=== PATIENT | female | born 1965 | race Caucasian/White ===

== ENCOUNTER 2018-12-08 13:37 | Emergency (ER) | payer OTHER, SELFPAY ==
[~2018-12-08] VITALS: Ht 162.6 cm; Wt 61.2 kg
[~2018-12-08 13:37] MED LIST: ALBU90OI61 INH; Antivert12.5 MG PO; KETO5OP OU; Zofran Odt4 MG SL
[2018-12-08 14:06] LABS: BASOPHILS ABSOLUTE AUTO 0.07 K/mm3 (0.00-0.23); BASOPHILS PERCENT AUTO 1 % (0-2); EOSINOPHILS ABSOLUTE AUTO 0.11 K/mm3 (0.00-0.68); EOSINOPHILS PERCENT AUTO 1 % (0-6); Hematocrit 41.3 % (33.0-51.0); Hemoglobin 13.7 g/dL (11.5-16.0); IMMATURE GRAN ABSOLUTE AUTO 0.02 K/mm3 (0.00-0.10); IMMATURE GRAN PERCENT AUTO 0 % (0-1); LYMPHOCYTES ABSOLUTE AUTO 4.16 K/mm3 (0.84-5.20); LYMPHOCYTES PERCENT AUTO 46 % (21-46); MONOCYTES ABSOLUTE AUTO 0.56 K/mm3 (0.16-1.47); MONOCYTES PERCENT AUTO 6 % (4-13); Mean Corpuscular HGB 31.1 pg (26.0-34.0); Mean Corpuscular HGB Conc 33.2 g/dL (31.5-36.5); Mean Corpuscular Volume 94 fL (80-100); Mean Platelet Volume 10.2 fL (9.1-12.4); NEUTROPHILS ABSOLUTE AUTO 4.13 K/mm3 (1.96-9.15); NEUTROPHILS PERCENT AUTO 46 % (41-73); Platelet Count 204 K/mm3 (150-400); RDW Coefficient Variation 12.6 % (11.7-14.2); RDW Standard Deviation 43.2 fL (35.1-46.3); Red Blood Cell Count 4.41 M/mm3 (3.80-5.20); White Blood Cell Count 9.05 K/mm3 (4.00-11.30)
[2018-12-08 14:25] LABS: Alanine Aminotransfer (ALT/SGP 17 U/L (12-78); Albumin, Blood 3.6 g/dL (3.4-5.0); Alk Phos 116 U/L (50-136); Anion Gap 7 mmol/L (6-16); Aspartate Aminotrans (AST/SGOT 12 U/L (12-37); Bilirubin, Total 0.2 mg/dL (0.1-1.0); Blood Urea Nitrogen 11 mg/dL (8-24); Bun/Creatinine Ratio 14.6 (12.0-20.0); CO2, Blood 26 mmol/L (21-32); Calcium, Blood 8.7 mg/dL (8.5-10.1); Chloride, Blood 108 mmol/L (98-108); Creatinine, Blood 0.75 mg/dL (0.40-1.00); Globulin, Blood 3.7 g/dL (2.2-4.0); Glomerular Filtration Rate >60 (60-); Glucose, Blood 116 mg/dL (70-99); Potassium, Blood 3.8 mmol/L (3.5-5.5); Sodium, Blood 141 mmol/L (136-145); Total Protein, Blood 7.3 g/dL (6.4-8.2); Troponin I <0.015 ng/mL (0.000-0.040)
[2018-12-08] MEDS ORDERED: OMEPRAZOLE MAGN20 MG PO (17:23)
[2018-12-08] MEDS ORDERED: NITR.4SL SL (17:25)
== END 2018-12-08 17:33 | disposition home or self-care (01) ==
LOC: ER 13:37
PROVIDERS: Physician Assistant
DX: R07.9 Chest pain, unspecified (principal); F43.9 Reaction to severe stress, unspecified; Z72.0 Tobacco use; Z88.1 Allergy status to other antibiotic agents; Z86.73 Personal history of transient ischemic attack (TIA), and cerebral infarction without residual deficits; F17.200 Nicotine dependence, unspecified, uncomplicated
CPT/HCPCS: 36415; 71046; 80053; 83880; 84484; 85025; 93005; 93010; 94640; 96374; 99284-25

== ENCOUNTER 2022-07-18 20:32 | Emergency (ER) | payer BC, OTHER ==
[~2022-07-18] VITALS: Ht 162.6 cm; Wt 63.5 kg
[~2022-07-18 20:32] MED LIST changes: +NITR.4SL SL; +OMEPRAZOLE MAGN20 MG PO
[2022-07-19] MEDS ORDERED: Roxicodone5 MG PO (00:31)
== END 2022-07-19 00:40 | disposition home or self-care (01) ==
LOC: ER 20:32
DX: K08.89 Other specified disorders of teeth and supporting structures (principal); F17.200 Nicotine dependence, unspecified, uncomplicated; Z86.73 Personal history of transient ischemic attack (TIA), and cerebral infarction without residual deficits
CPT/HCPCS: 64400; 99282-25; A9270

== ENCOUNTER 2023-02-10 16:57 | Emergency (ER) | payer BC, OTHER ==
[~2023-02-10] VITALS: Ht 162.6 cm; Wt 64.0 kg
[~2023-02-10 16:57] MED LIST changes: +Roxicodone5 MG PO
[2023-02-10 17:53] LABS: Hematocrit 42.1 % (33.0-51.0); Mean Corpuscular HGB 29.9 pg (26.0-34.0); Mean Corpuscular HGB Conc 33.3 g/dL (31.5-36.5); Mean Corpuscular Volume 90 fL (80-100); Mean Platelet Volume 10.2 fL (9.1-12.4); Platelet Count 221 K/mm3 (150-400); RDW Coefficient Variation 13.1 % (11.7-14.2); RDW Standard Deviation 42.8 fL (35.1-46.3); Red Blood Cell Count 4.68 M/mm3 (3.80-5.20); White Blood Cell Count 11.87 K/mm3 (4.00-11.30)
[2023-02-10 18:17] LABS: BASOPHILS PERCENT MAN 0 % (0-2); EOSINOPHILS PERCENT MAN 0 % (0-6); LYMPHOCYTES ABSOLUTE MAN 6.17 K/mm3 (0.84-5.20); LYMPHOCYTES PERCENT MAN 52 % (21-46); MONOCYTES ABSOLUTE MAN 0.47 K/mm3 (0.16-1.47); MONOCYTES PERCENT MAN 4 % (4-13); NEUTROPHILS ABSOLUTE MAN 5.22 K/mm3 (1.96-9.15); SEG NEUTROPHILS PERCENT MAN 44 % (41-73); TOTAL CELLS COUNTED 100
[2023-02-10 18:20] LABS: Albumin, Blood 3.4 g/dL (3.4-5.0); Albumin/Globulin Ratio 0.8 (0.8-1.8); Bilirubin, Total 0.3 mg/dL (0.1-1.0); Bun/Creatinine Ratio 13.1 (12.0-20.0); Calcium, Blood 8.9 mg/dL (8.5-10.1); Creatinine, Blood 0.76 mg/dL (0.40-1.00); Globulin, Blood 4.1 g/dL (2.2-4.0); Magnesium, Blood 2.1 mg/dL (1.6-2.4); Potassium, Blood 3.6 mmol/L (3.5-5.5); Total Protein, Blood 7.5 g/dL (6.4-8.2)
[2023-02-10 18:21] LABS: Source, Urine Clean Catch
[2023-02-10 18:24] LABS: Appearance, Urine Clear (Clear); Bilirubin, Urine Neg (Neg); Blood, Urine 4+ (Neg); Color, Urine Yellow (P-Yellow); Glucose Qualitative, Urine Neg (Neg); Ketones, Urine 1+ (Neg); Leukocyte Esterase, Urine Neg (Neg); Nitrite, Urine Neg (Neg); Protein, Urine 1+ (Neg); Urobilinogen, Urine NORM (Normal)
[2023-02-10 18:31] LABS: White Blood Cells, Urine 0-2 /hpf (0-5)
[2023-02-10 18:32] LABS: Bacteria Few /hpf; Mucus Light (0-Heavy); Squamous Epithelial Cells Few /hpf (Few)
[2023-02-10] MEDS ORDERED: CIPR500 PO (19:35)
[2023-02-10] MEDS ORDERED: METR500 PO (19:35)
[2023-02-10] MEDS ORDERED: PROBIOTIC1 EA13 PO (19:35)
[2023-02-10 20:32] VITALS: BP 114/91
== END 2023-02-10 20:33 | disposition home or self-care (01) ==
LOC: ER 16:57
PROVIDERS: Physician Assistant
DX: K57.32 Diverticulitis of large intestine without perforation or abscess without bleeding (principal); K52.9 Noninfective gastroenteritis and colitis, unspecified; F17.200 Nicotine dependence, unspecified, uncomplicated
CPT/HCPCS: 74177; 80053; 81001; 83735; 85025; 99284-25; A9270; Q9967

== ENCOUNTER 2024-04-08 08:38 | Inpatient (IN) | payer OTHER ==
[~2024-04-08] VITALS: Ht 162.6 cm; Wt 62.9 kg
[~2024-04-08 08:38] MED LIST changes: +CIPR500 PO; +METR500 PO; +PROBIOTIC1 EA13 PO
[2024-04-08] MEDS ORDERED: Ketorolac Tromethamine 30mg Vial IM ONE (09:40)
[2024-04-08 10:35] LABS: CORONAVIRUS COVID-19 AG Negative (NEGATIVE); INFLUENZA A AG Negative (NEGATIVE); INFLUENZA B AG Negative (NEGATIVE)
[2024-04-08] MEDS ORDERED: NS 1,000 ML IV SCH ×2 (11:05→14:25)
[2024-04-08] MEDS ORDERED: Acetaminophen 500 MG Tab PO ONE (11:05)
[2024-04-08 11:26] LABS: BASOPHILS ABSOLUTE AUTO 0.02 K/mm3 (0.00-0.23); BASOPHILS PERCENT AUTO 0 % (0-2); EOSINOPHILS PERCENT AUTO 0 % (0-6); Hematocrit 39.2 % (33.0-51.0); Hemoglobin 13.7 g/dL (11.5-16.0); IMMATURE GRAN ABSOLUTE AUTO 0.02 K/mm3 (0.00-0.10); IMMATURE GRAN PERCENT AUTO 0 % (0-1); LYMPHOCYTES ABSOLUTE AUTO 0.81 K/mm3 (0.84-5.20); LYMPHOCYTES PERCENT AUTO 11 % (21-46); MONOCYTES ABSOLUTE AUTO 0.44 K/mm3 (0.16-1.47); MONOCYTES PERCENT AUTO 6 % (4-13); Mean Corpuscular HGB 30.7 pg (26.0-34.0); Mean Corpuscular HGB Conc 34.9 g/dL (31.5-36.5); Mean Corpuscular Volume 88 fL (80-100); Mean Platelet Volume 9.4 fL (9.1-12.4); NEUTROPHILS ABSOLUTE AUTO 5.87 K/mm3 (1.96-9.15); NEUTROPHILS PERCENT AUTO 82 % (41-73); Platelet Count 133 K/mm3 (150-400); RDW Coefficient Variation 13.2 % (11.7-14.2); RDW Standard Deviation 42.9 fL (35.1-46.3); Red Blood Cell Count 4.46 M/mm3 (3.80-5.20); White Blood Cell Count 7.16 K/mm3 (4.00-11.30)
[2024-04-08 11:36] LABS: Source, Urine Clean Catch
[2024-04-08 11:44] LABS: Appearance, Urine Clear (Clear); Bilirubin, Urine Neg (Neg); Blood, Urine 5+ (Neg); Color, Urine Yellow (P-Yellow); Glucose Qualitative, Urine Neg (Neg); Ketones, Urine 4+ (Neg); Leukocyte Esterase, Urine Neg (Neg); Nitrite, Urine Neg (Neg); Protein, Urine 2+ (Neg); Urobilinogen, Urine NORM (Normal)
[2024-04-08 11:50] LABS: Amorphous Light (0-Heavy); Bacteria Few /hpf; Hyaline Casts 0-2 /lpf (0-2); Mucus Light (0-Heavy); Squamous Epithelial Cells Few /hpf (Few); White Blood Cells, Urine 0-2 /hpf (0-5)
[2024-04-08 12:05] LABS: Albumin, Blood 3.1 g/dL (3.4-5.0); Albumin/Globulin Ratio 0.7 (0.8-1.8); Bilirubin, Total 0.5 mg/dL (0.1-1.0); Bun/Creatinine Ratio 13.2 (12.0-20.0); Calcium, Blood 8.9 mg/dL (8.5-10.1); Creatinine, Blood 0.83 mg/dL (0.40-1.00); Globulin, Blood 4.2 g/dL (2.2-4.0); Total Protein, Blood 7.3 g/dL (6.4-8.2)
[2024-04-08] MEDS ORDERED: Potassium Chloride 20 MEQ TabCR PO ONE (12:30)
[2024-04-08] MEDS ORDERED: CefTRIAXone Sodium 1,000 MG in NS 100 ML IV ONE (13:15)
[2024-04-08] MEDS ORDERED: Azithromycin 500 MG in NS 250 ML IV ONE (13:15)
[2024-04-08] MEDS ORDERED: FLU VACC TS2024-25(6MOS UP)/PF 45 MCG/0.5 ML SYRINGE IM SCH (14:25)
[2024-04-08] MEDS ORDERED: Albuterol 2.5 MG/3 ML VIAL INH PRN (14:25)
[2024-04-08] MEDS ORDERED: Benzonatate 100 MG Cap PO PRN (14:25)
[2024-04-08] MEDS ORDERED: Guaifenesin/Dextromethorphan Syrup 5 ML UDC PO PRN (14:30)
[2024-04-08] MEDS ORDERED: Nitroglycerin 0.4 MG SUBL SL PRN (14:45)
[2024-04-08] MEDS ORDERED: PredniSONE 20 MG Tab PO SCH (15:00)
[2024-04-08 16:16] VITALS: BP 110/78
[2024-04-08] MEDS ORDERED: ESCITALOPRAM OXA5 MG PO (16:18)
[2024-04-08] MEDS ORDERED: TRAZ50 PO (16:18)
[2024-04-08 17:15] LABS: Adenovirus Not Detected (NOT DETECT); Bordetella pertussis Not Detected (NOT DETECT); Chlamydophila pneumoniae Not Detected (NOT DETECT); Coronavirus 229E Not Detected (NOT DETECT); Coronavirus HKU1 Not Detected (NOT DETECT); Coronavirus NL63 Not Detected (NOT DETECT); Coronavirus OC43 Not Detected (NOT DETECT); Human Metapneumovirus Not Detected (NOT DETECT); Human Rhinovirus/Enterovirus Not Detected (NOT DETECT); Influenza A/2009-H1 Not Detected (NOT DETECT); Influenza A/H1 Not Detected (NOT DETECT); Influenza A/H3 Not Detected (NOT DETECT); Influenza B Not Detected (NOT DETECT); Mycoplasma pneumoniae Not Detected (NOT DETECT); Parainfluenza Virus 1 Not Detected (NOT DETECT); Parainfluenza Virus 2 Not Detected (NOT DETECT); Parainfluenza Virus 3 Not Detected (NOT DETECT); Parainfluenza Virus 4 Not Detected (NOT DETECT); Respiratory Syncytial Virus Not Detected (NOT DETECT); SARS-Cov-2 (COVID-19), BioFire Not Detected (NOT DETECT)
--- NOTE | 2024-04-08 17:38 | NUR ---
ADMISSION NOTE: PATIENT ARRIVES TO ROOM VIA GURNEY AT 1608 FROM ER FOR DX'S OF SEPSIS. PATIENT AMBULATED TO BATHROOM AND BACK TO BED c SBA. PATIENT REPORTS FEELING VERY WEAK, CHEST CONGESTION AND IT HURTS HER CHEST EVERYTIMES SHE COUGHS. PATIENT HAS DRY, NONPRODUCTIVE COUGH, MEDICATED c TESSALON JOSE AND ROBITUSSIN FOR COUGH. PATIENT LUNGS HAS CRACKLES T/O TO AUSCULTATION, ON 1L O2 VIA NC SATTING 90-95%. PATIENT ON TELE, NSR HR IN THE LOW 90'S BPM. PATIENT ORIENTATED TO ROOM AND CALL SYSTEM, ADMISSION, MEDRIC AND SKIN ASSESSMENT c 2 RN'S VERIFIED COMPLETED. PATIENT HAS PIV TO RAC INFUSING NS AT 125 MLS/HR. CALL LIGHT IN REACH.
[2024-04-08 19:45] VITALS: BP 106/61
[2024-04-08] MEDS ORDERED: Famotidine 20 MG Tab PO SCH (21:00)
[2024-04-08] MEDS ORDERED: Omeprazole 20 MG CapCR PO SCH (21:00)
--- NOTE | 2024-04-09 01:58 | NUR ---
PT WITH 3 EPISODES OF LIQUID BROWN/GREEN STOOL THIS SHIFT. PT STATES SHE HAS HAD DIARRHEA AT HOME FOR THE LAST WEEK. DR. ARREOLA NOTIFIED, AND PT WAS NOT ON ANTIBIOTICS AT HOME, STATED TO CONTINUE TO MONITOR.
[2024-04-09 03:21] VITALS: BP 100/62
[2024-04-09] MEDS ORDERED: Acetaminophen 325 MG TABLET PO PRN (03:50)
--- NOTE | 2024-04-09 03:52 | NUR ---
PT C/O ABDOMINAL PAIN, REQUESTING TYLENOL. DR. ARREOLA CALLED AND TYLENOL ORDERED. THIS RN ALSO REQUESTED ZOFRAN PRN NAUSEA. ORDERS RECEIVED.
[2024-04-09] MEDS ORDERED: Ondansetron HCl 2 MG / ML 2ML Vial IV PRN (03:55)
--- NOTE | 2024-04-09 05:58 | NUR ---
SHIFT SUMMARY PT SLEPT SHORT PERIODS DURING THE NIGHT. WOKE UP X3 DRIPPING WITH SWEAT- GOWN AND LINEN CHANGES PROVIDED. PT WITH LIQUID BROWN/GREEN STOOL X5 THIS SHIFT. EQUIPMENT TESTER PROVIDER CALLED AFTER 3RD LIQUID STOOL- NO NEW ORDERS. PT C/O ABDOMINAL PAIN- TYLENOL GIVEN WITH SOME RELIEF. PT ALSO MEDICATED FOR COUGH WITH ROBITUSSIN- SEE EMAR. PT VERBALIZING FRUSTRATION THAT SHE CONTINUES TO BE "SO SICK". PT C/O INCREASING WEAKNESS WHEN AMBULATING TO BATHROOM, STATING "MY LEGS FEEL LIKE NOODLES". BEDSIDE COMMODE PROVIDED. BED IN LOWEST POSITION, CALL LIGHT WITHIN REACH, SIDE RAILS UP X2.
[2024-04-09 06:11] LABS: Bun/Creatinine Ratio 12.7 (12.0-20.0); Calcium, Blood 8.2 mg/dL (8.5-10.1); Creatinine, Blood 0.63 mg/dL (0.40-1.00); Potassium, Blood 3.9 mmol/L (3.5-5.5)
[2024-04-09 07:21] VITALS: BP 99/64
[2024-04-09] MEDS ORDERED: Enoxaparin 40 MG/0.4 ML SYR SC SCH (09:00)
[2024-04-09] MEDS ORDERED: Lactobacil 2-S.Thermo-Bifido 1 1 Cap PO SCH (09:00)
[2024-04-09] MEDS ORDERED: Azithromycin 250 MG Tab PO SCH (09:00)
[2024-04-09] MEDS ORDERED: Citalopram Hydrobromide 20 MG Tab PO SCH (11:42)
[2024-04-09] MEDS ORDERED: CefTRIAXone Sodium 1,000 MG in NS 100 ML IV SCH (12:00)
[2024-04-09 14:35] LABS: Adenovirus F 40/41 Detected (NOT DETECT); Astrovirus Not Detected (NOT DETECT); Campylobacter Sp Not Detected (NOT DETECT); Cryptosporidium Not Detected (NOT DETECT); Cyclospora Cayetanensis Not Detected (NOT DETECT); E. Coli O157 Not Detected (NOT DETECT); Entamoeba Histolytica Not Detected (NOT DETECT); Enteroaggregative E. coli-EAEC Not Detected (NOT DETECT); Enteropathogenic E. coli-EPEC Not Detected (NOT DETECT); Enterotoxigenic E. coli-ETEC Not Detected (NOT DETECT); Giardia Lamblia Not Detected (NOT DETECT); Norovirus GI/GII Not Detected (NOT DETECT); Plesiomonas Shigelloides Not Detected (NOT DETECT); Rotavirus A Not Detected (NOT DETECT); Salmonella Sp Not Detected (NOT DETECT); Sapovirus Not Detected (NOT DETECT); Shiga Toxin-prod E. coli-STEC Not Detected (NOT DETECT); Shigella/Enteroin E. coli-EIEC Not Detected (NOT DETECT); Vibrio Cholerae Not Detected (NOT DETECT); Vibrio Sp Not Detected (NOT DETECT); Yersinia Enterocolitica Not Detected (NOT DETECT)
[2024-04-09 15:27] VITALS: BP 125/64
--- NOTE | 2024-04-09 16:49 | NUR ---
SHIFT SUMMARY: PATIENT A/OX4, ANXIOUS AT TIMES D/T HER MEDICAL CONDITION, REPORTS FEELS VERY WEAK, CHEST CONGESTED c DRY NON PRODUCTIVE COUGH AND NOT ABLE TO TAKE A REALY DEEP BREATH. PATIENT ON 1L O2, SATTING 94-95%, HAS FINE CRACKLES TO THE BASES TO AUSCULTATION. PATIENT RECEIVED PRN BX TX ADMINISTERED BY RT. PATIENT HAD 4 LIQUID BM THIS SHIFT, STOOL SPECIMEN COLLECTED FOR GI PANEL AND CAME BACK DETECTED FOR ADENOVIRUS, NOTIFIED DR. CHELLY oliva THIS RESULT. PATIENT RECEIVED SCHEDULED IV ABX/MEDS PER EMAR. VITAL SIGNS REVIEWED. CALL LIGHT IN REACH.
[2024-04-09 20:30] VITALS: BP 106/64
[2024-04-09] MEDS ORDERED: TraZODone HCl 50 MG Tab PO SCH (21:00)
[2024-04-10 02:25] VITALS: BP 113/65
--- NOTE | 2024-04-10 05:19 | NUR ---
SHIFT SUMMARY PT SLEPT INTERMITTENTLY THROUGH THE NIGHT. PT WITHOUT ANY EPISODES OF NIGHT SWEATS. LIQUID STOOL CONTINUES, BUT IS SLOWING DOWN. PT REMAINS SOB WITH ACTIVITY AND IS ONLY OOB TO BSC. 1L NC WITH SATS IN THE MID 'S. MEDICATED WITH PRN TYLENOL, ROBITUSSIN, AND TESSALON JOSE- SEE EMAR. BED IN LOWEST POSITION, CALL LIGHT WITHIN REACH, SIDE RAILS UP X2.
[2024-04-10 05:32] LABS: Bun/Creatinine Ratio 13.9 (12.0-20.0); Calcium, Blood 8.8 mg/dL (8.5-10.1); Creatinine, Blood 0.65 mg/dL (0.40-1.00); Potassium, Blood 3.3 mmol/L (3.5-5.5)
[2024-04-10 07:25] VITALS: BP 119/66
[2024-04-10] MEDS ORDERED: Loperamide HCl 2 MG Cap PO PRN (07:45)
[2024-04-10] MEDS ORDERED: Potassium Chloride 20 MEQ TabCR PO ONE (07:45)
[2024-04-10] MEDS ORDERED: Banana Flakes/Tos 1 EA Powder Pack PO SCH (09:00)
[2024-04-10 15:46] VITALS: BP 129/74
--- NOTE | 2024-04-10 17:50 | NUR ---
SHIFT SUMMARY PT CONT LEVEL OF CARE WITH NO ACUTE CHANGES NOTED. PT IS A&OX4 AND INDEPENDENT IN ROOM. PT NOTED TO BE SOB WITH MILD EXERTION AND TAKES A LITTLE WHILE TO RECOVER. PT HAS RECIEVED PRN INHALER THIS SHIFT. PT STATES SHE STILL FEEL WEAK BUT ITS IMPROVED FROM THE PAST COUPLE DAYS. POSSIBLE DC IN NEXT COUPLE DAYS.
[2024-04-10 19:57] VITALS: BP 116/72
[2024-04-11 02:47] VITALS: BP 116/71
--- NOTE | 2024-04-11 05:43 | NUR ---
DERIVATIVES TRADER SUMMARY: PT A&O X4, MAKES NEEDS KNOWN. INDEPENDENT IN ROOM. PT MEDICATED X2 WITH ROBITUSSIN PER EMAR FOR COUGH; EFFECTIVE. PT REC'D PRN NEBULIZER TX WITH RT; EFFECTIVE AND PT REPORTS EXPECTORATING LARGE AMOUT OF MUCUS. PT REPORTS DECREASED AMOUNT OF LOOSE BM THIS SHIFT. TELE IN PLACE, SR AT 66 BPM. NO ACUTE CHANGES THIS SHIFT. BED IN LOWEST POSITION. CALL LIGHT IN REACH. CARES CONTINUE ORDERED.
[2024-04-11 05:45] LABS: Bun/Creatinine Ratio 13.9 (12.0-20.0); Creatinine, Blood 0.65 mg/dL (0.40-1.00); Potassium, Blood 3.2 mmol/L (3.5-5.5)
[2024-04-11 07:22] VITALS: BP 113/70
[2024-04-11] MEDS ORDERED: NS 250 ML IV PRN (12:05)
[2024-04-11] MEDS ORDERED: Potassium Chloride 20 MEQ TabCR PO ONE (12:45)
[2024-04-11] MEDS ORDERED: Saline Nasal Spray 45 ML PRN (12:45)
[2024-04-11] MEDS ORDERED: Meclizine HCl 25 MG Tab PO PRN (12:45)
[2024-04-11 16:34] VITALS: BP 109/64
[2024-04-11] MEDS ORDERED: OMEP20ER PO (17:14)
--- NOTE | 2024-04-11 17:36 | NUR ---
SUMMARY NO ACUTE CHANGES THIS SHIFT. PT COUGH IS HARSH AND MOIST. PT CURRENTLY ON 1L NC. DYSPNEA WITH MOVEMENTS. IV ANTIBIOTICS CONTINUED, PT REPORTS WATERY STOOL THIS MORNING THAT RESOLVED WITH BANANA FLAKES. WILL CONTINUE ORDERED. PT IS INDEPENDENT IN THE ROOM, ABLE TO EXPRESS NEEDS.
[2024-04-11 19:31] VITALS: BP 116/70
[2024-04-11] MEDS ORDERED: GuaiFENesin 600 MG TabCR PO SCH (21:00)
--- NOTE | 2024-04-12 04:39 | NUR ---
SHIFT SUMMARY PT ALERT ORIENTED X 4 CALLS APPROPRIATELY. GETS UP IN ROOM AD DALE AND GOES TO BATHROOM. C/O COUGH AND CONGESTION MEDICATED WITH TESSALON PEARLES AND ROBITUSSIN DM. SHE SLEPT WELL LAST NIGHT. LUNG SOUNDS WITH INS AND EXP WHEEZES. REMAINS ON O2 AT 2L VIA NC. REMAINS ON CONTACT PRECAUTIONS. REMAINS ON ROCEPHIN AND ZITHROMAX FOR PNEUMONIA. VSS ON 2 L SATTING AT 94%. NO C/O CHEST PAIN OR PRESSURE. SHE DOES HAVE SLIGHT PAIN FROM COUGHING. LABS TO BE DONE TODAY TO CHECK POTASSIUM LEVELS. RESTING IN BED AT THIS TIME WITH CALL LIGHT IN REACH
[2024-04-12 05:17] LABS: Hematocrit 35.2 % (33.0-51.0); Hemoglobin 11.8 g/dL (11.5-16.0); Mean Corpuscular HGB 30.1 pg (26.0-34.0); Mean Corpuscular HGB Conc 33.5 g/dL (31.5-36.5); Mean Corpuscular Volume 90 fL (80-100); Mean Platelet Volume 10.1 fL (9.1-12.4); Platelet Count 182 K/mm3 (150-400); RDW Coefficient Variation 14.2 % (11.7-14.2); RDW Standard Deviation 46.2 fL (35.1-46.3); Red Blood Cell Count 3.92 M/mm3 (3.80-5.20); White Blood Cell Count 9.99 K/mm3 (4.00-11.30)
[2024-04-12 05:45] VITALS: BP 115/71
[2024-04-12 06:02] LABS: Albumin, Blood 2.9 g/dL (3.4-5.0); Anion Gap 10 mmol/L (3-11); Blood Urea Nitrogen 10 mg/dL (8-24); Bun/Creatinine Ratio 14.6 (12.0-20.0); CO2, Blood 24 mmol/L (21-32); Calcium, Blood 9.3 mg/dL (8.5-10.1); Chloride, Blood 109 mmol/L (98-108); Creatinine, Blood 0.68 mg/dL (0.40-1.00); Glomerular Filtration Rate 102 (60-); Glucose, Blood 88 mg/dL (70-99); Magnesium, Blood 2.3 mg/dL (1.6-2.4); Phosphorus, Blood 4.3 mg/dL (2.5-4.9); Potassium, Blood 3.5 mmol/L (3.5-5.5); Sodium, Blood 139 mmol/L (136-145)
[2024-04-12 08:00] VITALS: BP 135/74
[2024-04-12] MEDS ORDERED: Cholecalciferol 1000 Unit Tablet (=25MCG) PO SCH (09:00)
[2024-04-12] MEDS ORDERED: BENZ100A PO (13:43)
[2024-04-12] MEDS ORDERED: GUAI600T33 PO (13:44)
[2024-04-12] MEDS ORDERED: PRED20 PO (13:45)
[2024-04-12] MEDS ORDERED: DOXY100 PO (13:45)
--- NOTE | 2024-04-12 14:47 | NUR ---
PT DISCHARGED HOME. DISCHARGE INSTRUCTIONS DISCUSSED WITH PT. PT R.A, IV ANTIBIOTIC GIVEN BEFORE DISCHARGE, PT WILL START PO ANTIBIOTIC /2. NO QUESTIONS OR CONCERNS AT THIS TIME
== END 2024-04-12 14:50 | disposition home or self-care (01) | DRG 871 ==
LOC: ER 08:38 → MEDS 14:21 → ENPENDDIS 04-12 14:36 → MEDS 04-12 14:50
PROVIDERS: Internal Medicine; Student in an Organized Health Care Education/Training Program; ADMIT Internal Medicine
DX: A41.9 Sepsis, unspecified organism (principal); J18.9 Pneumonia, unspecified organism; J96.01 Acute respiratory failure with hypoxia; E87.1 Hypo-osmolality and hyponatremia; K52.9 Noninfective gastroenteritis and colitis, unspecified; F17.210 Nicotine dependence, cigarettes, uncomplicated; E87.6 Hypokalemia; Z86.73 Personal history of transient ischemic attack (TIA), and cerebral infarction without residual deficits; Z85.41 Personal history of malignant neoplasm of cervix uteri; Z90.710 Acquired absence of both cervix and uterus; Z90.89 Acquired absence of other organs; Z79.899 Other long term (current) drug therapy; Z88.1 Allergy status to other antibiotic agents; Z71.6 Tobacco abuse counseling
CPT/HCPCS: 0202U; 36415; 71046; 80048; 80053; 80069; 81001; 83605; 83735; 85025; 85027; 87040; 87428-QW; 87507; 93005; 93010; 94640; 94664; 94760; 94761; 96361; 96372-59; 96374; 99284-25; A9270; J0456; J0696; J1650; J1885; J7030; J7050; J7512

== ENCOUNTER → 2024-04-26 | Outpatient (CLI) | payer OTHER ==
[~2024-04-26] MED LIST changes: +BENZ100A PO; +DOXY100 PO; +ESCITALOPRAM OXA5 MG PO; +GUAI600T33 PO; +OMEP20ER PO; +PRED20 PO; +TRAZ50 PO
[2024-04-27 14:02] LABS: C DIFFICILE DNA NEGATIVE (Negative)
== END ==
LOC: LAB SHORT 11:00 → LAB 11:00
PROVIDERS: Registered Nurse
DX: R19.7 Diarrhea, unspecified (principal)
CPT/HCPCS: 87015; 87045; 87046; 87205; 87493; 87899